=== PATIENT | female | born 1995 | race Caucasian/White ===

== ENCOUNTER 2017-03-20 21:02 | Emergency (ER) | payer SELFPAY ==
[~2017-03-20] VITALS: Ht 172.7 cm; Wt 71.4 kg
[2017-03-20 21:19] VITALS: BP 117/77
[2017-03-20] MEDS ORDERED: LIDOCAINE 1%, 20ML ONE (21:40)
[2017-03-20] MEDS ORDERED: LIDOCAINE 1%, 20ML SQ ONE (22:00)
== END 2017-03-20 22:06 | disposition home or self-care (01) ==
LOC: ED 21:36
DX: N76.4 Abscess of vulva (principal); J45.909 Unspecified asthma, uncomplicated
CPT/HCPCS: 56405; 99284

== ENCOUNTER 2017-06-06 21:27 | Emergency (ER) | payer OTHER ==
[~2017-06-06] VITALS: Ht 170.2 cm; Wt 71.3 kg
[2017-06-06 21:28] VITALS: BP 120/79
== END 2017-06-06 22:43 | disposition home or self-care (01) ==
LOC: ED 22:37
DX: B02.9 Zoster without complications (principal); J45.909 Unspecified asthma, uncomplicated
CPT/HCPCS: 99283

== ENCOUNTER 2017-10-16 22:18 | Emergency (ER) | payer OTHER ==
[~2017-10-16] VITALS: Ht 170.2 cm; Wt 71.0 kg
[2017-10-16 22:20] VITALS: BP 121/78
[2017-10-16] MEDS ORDERED: ALBUTEROL (22:26)
== END 2017-10-17 00:26 | disposition home or self-care (01) ==
LOC: ED 10-17 00:20
DX: N76.4 Abscess of vulva (principal); J45.909 Unspecified asthma, uncomplicated
CPT/HCPCS: 99283